=== PATIENT | male | born 1955 | race Caucasian/White ===

== ENCOUNTER 2024-06-20 10:00 | Inpatient (IN) | payer MEDICARE, OTHER ==
[2024-06-20] MEDS ORDERED: niCARdipine 25 MG/10 ML SDV ONE ×3 (10:07→17:13)
[2024-06-20 10:18] LABS: #Basophils 0.08 10x3/uL (0.0-0.2); #Eosinophils Less than 0.03 10x3/uL (0.0-0.7); %Basophils 0.7 % (0.0-1.0); %Eosinophils 0.2 % (0.0-10.0); %Lymphocytes 6.7 % (21.0-51.0); %Monocytes 6.3 % (0.0-10.0); %Neutrophils 85.5 % (42.0-75.0); Hemoglobin 18.7 g/dL (14.0-18.0); Mean Corpuscular HGB CONC 36.7 g/dL (32.0-36.0); Mean Corpuscular Hemoglobin 33.3 pg (27.0-31.0); Mean Corpuscular Volume 90.7 fL (78.0-98.0); Mean Platelet Volume 10.7 fL (7.4-10.4); Platelet Count 182 10x3/uL (130-400); RBC Distribution Width 12.5 % (11.5-14.5); Red Blood Cell (RBC) Count 5.62 mill/uL (4.70-6.10)
[2024-06-20] MEDS ORDERED: Iopamidol-370 76% 500 ML MDV (1 ML CHARGE) ONE (10:22)
[2024-06-20] MEDS ORDERED: Tenecteplase 50 MG ONE (10:38)
[2024-06-20 10:39] LABS: ALT (SGPT) 39 U/L (8-55); AST (SGOT) 29 U/L (5-34); Albumin 3.9 g/dL (3.4-4.8); Alkaline Phosphatase 72 U/L (40-110); Anion Gap 15 mmol/L (10-20); BUN (Urea Nitrogen) 16 mg/dL (8.4-25.7); Bilirubin, Total 0.9 mg/dL (0.2-1.2); Calc. Creatinine Clearance 0 mL/min (70-130); Calcium 9.3 mg/dL (7.8-10.44); Carbon Dioxide 23 mmol/L (23-31); Chloride 105 mmol/L (98-107); Estimated GFR 45; Glucose 139 mg/dL (80-115); Potassium 3.1 mmol/L (3.5-5.1); Protein, Total 7.9 g/dL (5.8-8.1); Sodium 140 mmol/L (136-145)
[2024-06-20 10:53] LABS: INR-International Normal Ratio 1.1; Prothrombin Time 13.8 sec (12.0-14.7)
[2024-06-20 10:54] LABS: PTT 29.2 sec (22.9-36.1)
[2024-06-20 11:53] LABS: Troponin I 0.261 ng/mL (< 0.028)
[2024-06-20] MEDS ORDERED: Potassium Chloride 20 MEQ (100 mL) BAG ONE (12:06)
[2024-06-20] MEDS ORDERED: Ondansetron PF 4 MG/2 ML Vial IVP PRN (12:27)
[2024-06-20] MEDS ORDERED: Senokot S 8.6-50 MG TAB PO PRN (12:27)
[2024-06-20] MEDS ORDERED: Acetaminophen 650 MG Suppository PR PRN (12:27)
[2024-06-20] MEDS ORDERED: Acetaminophen 325 MG TAB PO PRN (12:27)
[2024-06-20] MEDS ORDERED: Lorazepam 2 MG/ML VIAL IM PRN (12:34)
[2024-06-20] MEDS ORDERED: Electrolyte Replacement Protocol FS SCH (12:45)
[2024-06-20 12:59] LABS: Cardiac Risk 3.6 (Less than 4.5)
[2024-06-20] MEDS ORDERED: Potassium Chloride 20 MEQ TAB PO SCH (15:45)
[2024-06-20] MEDS ORDERED: Electrolyte Replacement Protocol FS PRN (15:45)
[2024-06-20] MEDS ORDERED: niCARdipine 40MG In NaCl 40 MG/200 ML BAG IVPB SCH (17:30)
[2024-06-20] MEDS ORDERED: Thiamine HCl 200 MG/2 ML VIAL ONE (17:35)
[2024-06-20] MEDS ORDERED: Nicotine 14 MG PATCH ONE (17:35)
[2024-06-20] MEDS: Thiamine HCl 200 MG/2 ML VIAL SLOW IVP SCH (17:48)
[2024-06-20] MEDS: Nicotine 14 MG PATCH TD SCH (17:48)
[2024-06-20 18:44] VITALS: BMI 30.2
[2024-06-20] MEDS ORDERED: Multivit, Adult Inj 10 ML VIAL IV SCH (20:15)
[2024-06-20] MEDS: diphenhydrAMINE 50 MG/ML VIAL IVP SCH (20:54)
[2024-06-20] MEDS: Multivitamins, Adult 10 ML in Sodium Chloride 0.9% 500 ML IV SCH (20:54)
[2024-06-21] MEDS: SODIUM CHLORIDE 0.9% IVPB SCH (08:37)
[2024-06-21] MEDS: NICARDIPINE IVPB SCH (08:37)
[2024-06-21] MEDS: ADMIXTURE FEE CHEMO IVPB SCH (08:37)
[2024-06-21] MEDS: FLU (Fluad Triv) TS24-25 (65UP)/MF59C/PF 45 MCG/0.5 ML Syringe IM ONE (08:39)
[2024-06-21] MEDS: Aspirin 81 mg Enteric Coated Tablet PO SCH (13:36)
[2024-06-21] MEDS: Carvedilol 6.25 MG TAB PO SCH ×2 (13:37→16:38)
[2024-06-21] MEDS: Amlodipine 10 MG TAB PO SCH (16:38)
[2024-06-21] MEDS: Rosuvastatin 20 MG TAB PO SCH (20:21)
[2024-06-21] MEDS: QUEtiapine 25 MG TAB PO SCH (21:27)
[2024-06-21] MEDS ORDERED: Ondansetron ODT 4 MG TAB PO PRN (22:29)
[2024-06-21] MEDS: Lorazepam 1 MG TAB PO SCH (22:49)
[2024-06-22 04:14] LABS: #Basophils 0.08 10x3/uL (0.0-0.2); %Basophils 0.8 % (0.0-1.0); %Eosinophils 1.3 % (0.0-10.0); %Lymphocytes 17.7 % (21.0-51.0); %Monocytes 11.3 % (0.0-10.0); %Neutrophils 68.5 % (42.0-75.0); Hemoglobin 16.6 g/dL (14.0-18.0); Mean Corpuscular HGB CONC 35.3 g/dL (32.0-36.0); Mean Corpuscular Hemoglobin 32.9 pg (27.0-31.0); Mean Corpuscular Volume 93.1 fL (78.0-98.0); Platelet Count 193 10x3/uL (130-400); RBC Distribution Width 12.9 % (11.5-14.5); Red Blood Cell (RBC) Count 5.05 mill/uL (4.70-6.10)
[2024-06-22 04:32] LABS: Anion Gap 13 mmol/L (10-20); BUN (Urea Nitrogen) 20 mg/dL (8.4-25.7); Calc. Creatinine Clearance 72 mL/min (70-130); Calcium 8.7 mg/dL (7.8-10.44); Carbon Dioxide 24 mmol/L (23-31); Chloride 107 mmol/L (98-107); Estimated GFR 60; Glucose 110 mg/dL (80-115); Potassium 3.8 mmol/L (3.5-5.1); Sodium 140 mmol/L (136-145)
[2024-06-22] MEDS: Amlodipine 10 MG TAB PO SCH (07:37)
[2024-06-22] MEDS: Multivit, Therapeutic 1 TAB PO SCH (08:14)
[2024-06-22] MEDS: Folic Acid 1 MG TAB PO SCH (08:14)
[2024-06-22] MEDS: Aspirin 81 mg Enteric Coated Tablet PO SCH (08:15)
[2024-06-22] MEDS: Labetalol HCl 100 MG/20 ML VIAL SLOW IVP PRN (09:27)
[2024-06-22 09:52] VITALS: BMI 28.8
[2024-06-22] MEDS: Losartan 25 MG TAB PO SCH (13:20)
[2024-06-22] MEDS: Carvedilol 6.25 MG TAB PO SCH (16:20)
[2024-06-22] MEDS: Lorazepam 1 MG TAB PO PRN (21:23)
[2024-06-22] MEDS ORDERED: Lorazepam 1 MG TAB PO PRN (22:29)
[2024-06-23 04:54] LABS: %Basophils 1.1 % (0.0-1.0); %Eosinophils 2.3 % (0.0-10.0); %Lymphocytes 17.2 % (21.0-51.0); %Monocytes 10.7 % (0.0-10.0); %Neutrophils 68.3 % (42.0-75.0); Hematocrit 46.7 % (42.0-52.0); Hemoglobin 16.9 g/dL (14.0-18.0); Mean Corpuscular HGB CONC 36.2 g/dL (32.0-36.0); Mean Corpuscular Hemoglobin 33.5 pg (27.0-31.0); Mean Corpuscular Volume 92.7 fL (78.0-98.0); Platelet Count 196 10x3/uL (130-400); RBC Distribution Width 12.8 % (11.5-14.5); Red Blood Cell (RBC) Count 5.04 mill/uL (4.70-6.10)
[2024-06-23 05:17] LABS: Anion Gap 14 mmol/L (10-20); BUN (Urea Nitrogen) 30 mg/dL (8.4-25.7); Calc. Creatinine Clearance 58 mL/min (70-130); Calcium 8.7 mg/dL (7.8-10.44); Carbon Dioxide 23 mmol/L (23-31); Chloride 108 mmol/L (98-107); Estimated GFR 49; Glucose 110 mg/dL (80-115); Potassium 3.8 mmol/L (3.5-5.1); Sodium 141 mmol/L (136-145)
[2024-06-23] MEDS: Thiamine 100 MG TAB PO SCH (07:49)
[2024-06-23] MEDS: Losartan 25 MG TAB PO SCH (07:50)
[2024-06-23 16:55] VITALS: TEMP 99
[2024-06-23 17:47] VITALS: BP 163/95
[2024-06-23] MEDS ORDERED: Lorazepam 1 MG TAB PO PRN (22:29)
[2024-06-23] MEDS ORDERED: Lorazepam 0.5 MG TAB PO SCH (22:30)
[2024-06-24] MEDS ORDERED: Lorazepam 0.5 MG TAB PO PRN (22:29)
== END 2024-06-23 20:40 | DRG 62 ==
LOC: ERS 10:00 → ERHOLD 11:56 → CCU 18:14 → 2SE 06-23 10:48
PROVIDERS: ADMIT Student in an Organized Health Care Education/Training Program; ATTEND Hospitalist
PROC: 3E03317 Introduction of Other Thrombolytic into Peripheral Vein, Percutaneous Approach (ICD-10-PCS; 2024-06-20)
PROC: HZ2ZZZZ Detoxification Services for Substance Abuse Treatment (ICD-10-PCS; principal; 2024-06-22)
DX: I63.9 Cerebral infarction, unspecified (principal); G81.94 Hemiplegia, unspecified affecting left nondominant side; I16.1 Hypertensive emergency; N17.9 Acute kidney failure, unspecified; I24.89 Other forms of acute ischemic heart disease; I10 Essential (primary) hypertension; R79.89 Other specified abnormal findings of blood chemistry; R29.710 NIHSS score 10; F17.200 Nicotine dependence, unspecified, uncomplicated; F10.10 Alcohol abuse, uncomplicated; I25.10 Atherosclerotic heart disease of native coronary artery without angina pectoris; R47.9 Unspecified speech disturbances; R29.810 Facial weakness; I25.2 Old myocardial infarction; Z98.61 Coronary angioplasty status; Z92.82 Status post administration of tPA (rtPA) in a different facility within the last 24 hours prior to admission to current facility; E87.6 Hypokalemia
CPT/HCPCS: 36415; 70450; 70496; 70498; 70551; 71045; 74230; 80048; 80053; 80061; 83036; 84443; 84484; 85025; 85610; 85730; 93005; 93306; 93880; 96365; 96366; 96368; 96375; J1200; J3101; J3411; J3480; J7030; J7050; Q9967